=== PATIENT | male | born 1960 | race Hispanic/Latino ===

== ENCOUNTER 2020-08-24 06:33 | Day surgery (SDC) | payer BC ==
[2020-08-18 09:40] LABS: BASOPHILS % (AUTO) 0.6 % (0.0-5.0); EOSINOPHILS % (AUTO) 1.5 % (0.0-8.0); HEMATOCRIT 49.8 % (42-54); LYMPHOCYTES % (AUTO) 24.5 % (21.0-51.0); MEAN CORPUSCULAR HEMOGLOBIN 29.6 pg (27.0-33.0); MEAN CORPUSCULAR HGB CONC 33.7 g/dL (32.0-36.0); MEAN CORPUSCULAR VOLUME 87.7 fL (79-99); MONOCYTES % (AUTO) 9.8 % (3.0-13.0); NEUTROPHILS % (AUTO) 63.3 % (40.0-77.0); PLATELET COUNT (AUTO) 178 K/uL (130-400); RED BLOOD CELL COUNT(AUTO) 5.68 MIL/uL (4.50-6.20); RED CELL DISTRIBUTION WIDTH 12.5 % (11.0-15.5); WHITE BLOOD COUNT (AUTO) 6.7 K/uL (4.8-10.8)
[2020-08-18 09:48] LABS: CREATININE 0.8 mg/dL (0.5-1.5); POTASSIUM 4.3 mmol/L (3.5-5.1)
[2020-08-23 14:34] VITALS: BP 136/78
[2020-08-24] VITALS (18 sets, daily range): BP systolic 113–147; BP diastolic 49–83
[~2020-08-24] VITALS: Ht 165.1 cm; Wt 70.1 kg
[2020-08-24] MEDS ORDERED: CEFAZOLIN SODIUM 1 GM VIAL ONE (07:48)
[2020-08-24] MEDS ORDERED: LACTATED RINGERS 1000ML 1,000 ML IV ONE (07:48)
[2020-08-24] MEDS ORDERED: FENTANYL CITRATE PF 50 MCG/1 ML 2ML VIAL ONE (08:34)
[2020-08-24] MEDS ORDERED: LIDOCAINE PF 2% 5ML ABBOJECT ONE (08:34)
[2020-08-24] MEDS ORDERED: SUCCINYLCHOLINE 200MG/10ML SYR ONE (08:34)
[2020-08-24] MEDS ORDERED: MIDAZOLAM HCL 1 MG/ML 2ML VIAL ONE (08:34)
[2020-08-24] MEDS ORDERED: ROCURONIUM 10MG/1ML SYR 10 MG/ML ML ONE (08:34)
[2020-08-24] MEDS ORDERED: PROPOFOL 10 MG/ML 20ML VIAL IV ONE (08:34)
[2020-08-24] MEDS ORDERED: ONDANSETRON HCL 4 MG/2 ML VIAL ONE (10:42)
[2020-08-24] MEDS ORDERED: DEXAMETHASONE SOD PHOSPHATE 4 MG/ML 1ML VIAL ONE (10:42)
[2020-08-24] MEDS ORDERED: PHENYLEPHRINE HCL 10 MG/ML 1ML VIAL IV ONE (10:49)
[2020-08-24] MEDS ORDERED: BUPIVACAINE/PF 0.5% 30ML VIAL ONE (10:50)
[2020-08-24] MEDS ORDERED: GLYCOPYRROLATE 1 MG/5 ML SYRINGE ONE (10:51)
[2020-08-24] MEDS ORDERED: NEOSTIGMINE 5MG/5ML SYR IV ONE (10:52)
[2020-08-24] MEDS ORDERED: KETOROLAC TROMETHAMINE 30MG/ML ONE (12:31)
--- NOTE | 2020-08-24 14:00 | NUR ---
ASSESSMENT RECEIVED PT FROM PACU STAFF RUBÉN NOWAK. PT AAOX3. ABD BAND AIDS X3 TO ABD DRY AND INTACT. NO BLEEDING, OOZING NOTED. SOFT TO TOUCH. AT BEDSIDE.
[2020-08-24] MEDS ORDERED: SIMETHICONE 80 MG TAB.CHEW ONE (14:08)
--- NOTE | 2020-08-24 15:00 | NUR ---
DISCHARGE ORAl and written discharge instructions given to pt and pts along with prescriptions. no other questions at this. site x3 clean, dry, and intact
== END 2020-08-24 15:00 | disposition home or self-care (01) ==
LOC: DAH 06:33
PROVIDERS: ATTEND Surgery
DX: K40.91 Unilateral inguinal hernia, without obstruction or gangrene, recurrent (principal); Z90.49 Acquired absence of other specified parts of digestive tract; Z20.828 Contact with and (suspected) exposure to other viral communicable diseases
CPT/HCPCS: 49651; S2900; 36415; 71045; 80048; 85025; 93005; J0330; J0690; J1100; J1885; J2001; J2250; J2370; J2405; J2704; J2710; J3010; J3490; J7030; J7120; U0003